=== PATIENT | male | born 2000 | race Caucasian/White ===

== ENCOUNTER 2020-03-31 06:06 | Emergency (ER) | payer BC ==
[~2020-03-31] VITALS: Ht 172.7 cm; Wt 59.1 kg
[2020-03-31 06:21] VITALS: BP 145/96; TEMP 98.6
[2020-03-31 07:20] VITALS: PULSE 95
== END 2020-03-31 07:20 | disposition home or self-care (01) ==
LOC: COL.ER 06:06
DX: U07.1 COVID-19 (principal)